=== PATIENT | male | born 2000 | race Caucasian/White ===

== ENCOUNTER 2021-03-14 21:20 | Emergency (ER) | payer SELFPAY ==
[~2021-03-14 21:20] MED LIST: BACTROBAN OINT22 GM EXT; IBUPROFEN600 MG PO
[2021-03-15 00:25] LABS: HEMOGLOBIN 14.3 gm/dl (14.0-17.5); RED BLOOD COUNT 4.65 M/UL (4.20-5.50); WHITE BLOOD COUNT 8.7 K/UL (4.5-11.0)
[2021-03-15 00:48] LABS: BUN/CREATININE RATIO 15 (0-10)
[2021-03-15] MEDS ORDERED: PROVENTIL HFA6.7 GM INH (01:31)
== END 2021-03-15 01:38 | disposition home or self-care (01) ==
LOC: ER1 21:20
PROVIDERS: Student in an Organized Health Care Education/Training Program
DX: R06.2 Wheezing (principal); I10 Essential (primary) hypertension; Z53.21 Procedure and treatment not carried out due to patient leaving prior to being seen by health care provider
CPT/HCPCS: 0240U; 71046; 80053; 82550; 82553; 83874; 84484; 85025; 93005; 99285

== ENCOUNTER 2022-03-09 13:19 | Emergency (ER) | payer OTHER ==
[~2022-03-09 13:19] MED LIST changes: +PROVENTIL HFA6.7 GM INH
[2022-03-09 14:07] LABS: HEMOGLOBIN 18.6 gm/dl (14.0-17.5); RED BLOOD COUNT 4.9 M/UL (4.20-5.50); WHITE BLOOD COUNT 9.9 K/UL (4.5-11.0)
[2022-03-09 16:03] LABS: BUN/CREATININE RATIO 8 (0-10)
[2022-03-09] MEDS ORDERED: PROTONIX40 MG PO (17:45)
[2022-03-09] MEDS ORDERED: ONDANSETRON ODT4 MG SL (17:45)
[2022-03-10] MEDS ORDERED: ATORVASTATIN CA80 MG PO (10:17)
[2022-03-10] MEDS ORDERED: LISINOPRIL10 MG PO (10:18)
[2022-03-10] MEDS ORDERED: METOPROLOL TART25 MG PO (10:18)
[2022-03-10] MEDS ORDERED: TRICOR145 MG PO (10:18)
[2022-03-10] MEDS ORDERED: METFORMIN HCL1000 MG PO (10:19)
== END 2022-03-09 18:08 | disposition home or self-care (01) ==
LOC: ER1 13:19
DX: K85.90 Acute pancreatitis without necrosis or infection, unspecified (principal); E78.5 Hyperlipidemia, unspecified; E87.1 Hypo-osmolality and hyponatremia; E11.9 Type 2 diabetes mellitus without complications
CPT/HCPCS: 80053; 80061; 81001; 82962; 83690; 85025; 96374; 96375; 99284; C9113; J2270; J2405